=== PATIENT | male | born 1950 | race Caucasian/White ===

== ENCOUNTER 2022-06-14 16:13 | Emergency (ER) | payer MEDICARE, BC ==
[2022-06-14 17:30] LABS: TROPONIN I HIGH SENSITIVITY 12.5 pg/mL (<=60.3)
[2022-06-14] MEDS ORDERED: Potassium Chloride 20 MEQ in Premix Bag 1 BAG IV ONE (17:32)
[2022-06-14] MEDS ORDERED: Sodium Chloride 0.9% 10 ML Syringe FLUSH PRN (17:32)
[2022-06-14] MEDS ORDERED: Potassium Chloride 20 MEQ Tab.ER PO ONE (17:32)
[2022-06-14] MEDS ORDERED: Lidocaine 1% PF 2 ML SDV IV SCH (18:45)
== END 2022-06-14 21:11 | disposition home or self-care (01) ==
LOC: JP.ED 16:13
DX: R55 Syncope and collapse (principal); T50.2X5A Adverse effect of carbonic-anhydrase inhibitors, benzothiadiazides and other diuretics, initial encounter; I10 Essential (primary) hypertension; E87.6 Hypokalemia; Z79.82 Long term (current) use of aspirin; Z79.899 Other long term (current) drug therapy
CPT/HCPCS: 36415; 80048; 84484; 85025; 85379; 93005; 96365; 96366; 99284; A9270; J3480; J3490; 93010; 99283